=== PATIENT | female | born 1945 | race Caucasian/White ===

== ENCOUNTER 2018-08-03 04:00 | Observation (INO) | payer MEDICARE ==
[~2018-08-03] VITALS: Ht 160 cm; Wt 80.8 kg
[2018-08-03] MEDS ORDERED: NITROGLYCERIN SUBLINGUAL 0.4 MG BOTTLE OF 25. SL PRN ×2 (04:15→05:15)
[2018-08-03] MEDS ORDERED: dilTIAZem VIAL 125 MG in IV DEXTROSE 5% 100 ML IV STA (04:20)
--- NOTE | 2018-08-03 04:35 | PHYS DOC ---
Adult General Chief Complaint Chief Complaint cp HPI HPI 72 years old female presented to the emergency department with chest pain described as a pressure chest she stated that she woke up from sleep when to the kitchen and found her back she experienced pressure in his chest associated with dizziness and palpitation and shortness of breath no cough no fever no chills no abdominal pain urgency or frequency no hematuria Patient stated that she never experienced this pain before she denies any history of coronary artery disease, diabetes, smoking Review of Systems Review of Systems Constitutional: Denies fever or chills [] Eyes: Denies change in visual acuity, redness, or eye pain [] HENT: Denies nasal congestion or sore throat [] Respiratory: Denies cough or shortness of breath [] Cardiovascular: No additional information not addressed in HPI [] GI: Denies abdominal pain, nausea, vomiting, bloody stools or diarrhea [] : Denies dysuria or hematuria [] Musculoskeletal: Denies back pain or joint pain [] Integument: Denies rash or skin lesions [] Neurologic: Denies headache, focal weakness or sensory changes [] Endocrine: Denies polyuria or polydipsia [] All other systems were reviewed and found to be within normal limits, except as documented in this note. Current Medications Current Medications Current Medications Medications (Trade) Dose Ordered Sig/Troy Start Time Stop Time Status Last Admin Dose Admin Aspirin (Children'S Aspirin) 324 mg 1X ONCE 08/03/18 05:00 08/03/18 05:01 DC 08/03/18 04:42 324 MG Clopidogrel Bisulfate (Plavix) 300 mg 1X ONCE 08/03/18 05:00 08/03/18 05:01 DC 08/03/18 05:15 300 MG Dextrose 0 ml @ As Directed STK-MED ONCE 08/03/18 04:36 08/03/18 04:37 DC Diltiazem HCl (Cardizem Iv Push) 20 mg 1X ONCE 08/03/18 05:00 08/03/18 05:09 DC Diltiazem HCl (Cardizem) 125 mg STK-MED ONCE 08/03/18 04:36 08/03/18 05:09 DC Diltiazem HCl 125 mg/Dextrose 125 ml @ 5 mls/hr CONT PRN 08/03/18 04:45 08/03/18 05:09 DC Metoprolol Succinate (Toprol Xl) 50 mg 1X ONCE 08/03/18 05:30 08/03/18 05:31 08/03/18 05:15 50 MG Nitroglycerin (Nitro-Bid Oint) 1 inch 1X ONCE 08/03/18 05:00 08/03/18 05:09 DC Nitroglycerin (Nitrostat) 0.4 mg PRN Q5MIN PRN 08/03/18 05:15 08/04/18 05:14 Ondansetron HCl (Zofran) 4 mg PRN Q4HRS PRN 08/03/18 05:15 08/04/18 05:14 Sodium Chloride 1,000 ml @ 1,000 mls/hr Q1H 08/03/18 05:00 08/03/18 05:59 08/03/18 04:46 1,000 MLS/HR Allergies Allergies Allergies Coded Allergies Type Severity Reaction Last Updated Verified No Known Drug Allergies 08/03/18 No Physical Exam Physical Exam Constitutional: Well developed, well nourished, no acute distress, non-toxic appearance. [] HENT: Normocephalic, atraumatic, bilateral external ears normal, oropharynx moist, no oral exudates, nose normal. [] Eyes: PERRLA, EOMI, conjunctiva normal, no discharge. [] Neck: Normal range of motion, no tenderness, supple, no stridor. [] Cardiovascular:Heart rate regular rhythm, no murmur [] Lungs & Thorax: Bilateral breath sounds clear to auscultation [] Abdomen: Bowel sounds normal, soft, no tenderness, no masses, no pulsatile masses. [] Skin: Warm, dry, no erythema, no rash. [] Back: No tenderness, no CVA tenderness. [] Extremities: No tenderness, no cyanosis, no clubbing, ROM intact, no edema. [] Neurologic: Alert and oriented X 3, normal motor function, normal sensory function, no focal deficits noted. [] Psychologic: Affect normal, judgement normal, mood normal. [] Current Patient Data Vital Signs Vital Signs Date Time Temp Pulse Resp B/P (MAP) Pulse Ox O2 Delivery O2 Flow Rate FiO2 08/03/18 05:15 76 136/74 08/03/18 04:02 97.7 20 97 Room Air Lab Results Laboratory Tests Test 08/03/18 04:30 White Blood Count 7.2 x10^3/uL (4.0-11.0) Red Blood Count 4.22 x10^6/uL (3.50-5.40) Hemoglobin 12.9 g/dL (12.0-15.5) Hematocrit 38.1 % (36.0-47.0) Mean Corpuscular Volume 90 fL (79-100) Mean Corpuscular Hemoglobin 31 pg (25-35) Mean Corpuscular Hemoglobin Concent 34 g/dL (31-37) Red Cell Distribution Width 13.6 % (11.5-14.5) Platelet Count 338 x10^3/uL (140-400) Neutrophils (%) (Auto) 43 % (31-73) Lymphocytes (%) (Auto) 42 % (24-48) Monocytes (%) (Auto) 11 % (0-9) H Eosinophils (%) (Auto) 3 % (0-3) Basophils (%) (Auto) 1 % (0-3) Neutrophils # (Auto) 3.1 x10^3uL (1.8-7.7) Lymphocytes # (Auto) 3.0 x10^3/uL (1.0-4.8) Monocytes # (Auto) 0.8 x10^3/uL (0.0-1.1) Eosinophils # (Auto) 0.2 x10^3/uL (0.0-0.7) Basophils # (Auto) 0.1 x10^3/uL (0.0-0.2) Sodium Level 141 mmol/L (136-145) Potassium Level 3.6 mmol/L (3.5-5.1) Chloride Level 104 mmol/L (98-107) Carbon Dioxide Level 23 mmol/L (21-32) Anion Gap 14 (6-14) Blood Urea Nitrogen 23 mg/dL (7-20) H Creatinine 0.9 mg/dL (0.6-1.0) Estimated GFR (Cockcroft-Gault) 61.5 BUN/Creatinine Ratio 26 (6-20) H Glucose Level 117 mg/dL (70-99) H Calcium Level 8.6 mg/dL (8.5-10.1) Total Bilirubin 0.5 mg/dL (0.2-1.0) Aspartate Amino Transferase (AST) 27 U/L (15-37) Alanine Aminotransferase (ALT) 28 U/L (14-59) Alkaline Phosphatase 99 U/L (46-116) Creatine Kinase 238 U/L (26-192) H Creatine Kinase MB (Mass) 3.2 ng/mL (0.0-3.6) Creatine Kinase MB Relative Index 1.3 % (0-4) Troponin I Quantitative < 0.017 ng/mL (0-0.055) Total Protein 6.8 g/dL (6.4-8.2) Albumin 3.6 g/dL (3.4-5.0) Albumin/Globulin Ratio 1.1 (1.0-1.7) EKG EKG Rapid atrial fibrillation[] Radiology/Procedures Radiology/Procedures [] Course & Med Decision Making Course & Med Decision Making Pertinent Labs and Imaging studies reviewed. (See chart for details) [] Final Impression Final Impression After receiving IV fluids patient converted to sinus rhythm and emergency department, chest pain resolved Problems: (1) Rapid atrial fibrillation Dragon Disclaimer Dragon Disclaimer This electronic medical record was generated, in whole or in part, using a voice recognition dictation system. LARA JOHNSTON MD Aug 03, 2018 04:35
[2018-08-03] MEDS ORDERED: IV DEXTROSE 5% 0 ML IV ONE (04:36)
--- NOTE | 2018-08-03 04:43 | EKG ---
[address] [address] Test Date: 2018-08-03 Test Time: 04:07:26 Pat Name: NGUYEN GILMAN Department: Room: Gender: F Poultry Farmer: : 1945 Requested By: LARA JOHNSTON Order Number: [id number] Reading MD: Gerard Ruelas Measurements Intervals [place] Rate: 148 P: RI: QRS: -8 QRSD: 80 T: 47 QT: 280 QTc: 444 Interpretive Statements ATRIAL FIBRILLATION WITH RVR LEFTWARD AXIS Electronically Signed On 08-13-2018 9:24:05 [employer] SUPERVISOR by Gerard Ruelas
[2018-08-03] MEDS ORDERED: dilTIAZem VIAL 125 MG in IV DEXTROSE 5% 100 ML IV PRN (04:45)
[2018-08-03 04:49] LABS: BASO # 0.1 x10^3/uL (0.0-0.2); BASO % 1 % (0-3); EOS # 0.2 x10^3/uL (0.0-0.7); EOS % 3 % (0-3); HEMATOCRIT 38.1 % (36.0-47.0); HEMOGLOBIN 12.9 g/dL (12.0-15.5); LYMPH % 42 % (24-48); MEAN CORPUSCULAR HEMOGLOBIN 31 pg (25-35); MEAN CORPUSCULAR HGB CONC 34 g/dL (31-37); MEAN CORPUSCULAR VOLUME 90 fL (79-100); MONO # 0.8 x10^3/uL (0.0-1.1); MONO % 11 % (0-9); NEUT # 3.1 x10^3uL (1.8-7.7); NEUT % 43 % (31-73); PLATELET COUNT 338 x10^3/uL (140-400); RED BLOOD COUNT 4.22 x10^6/uL (3.50-5.40); RED CELL DISTRIBUTION WIDTH 13.6 % (11.5-14.5); WHITE BLOOD COUNT 7.2 x10^3/uL (4.0-11.0)
[2018-08-03] MEDS ORDERED: ASPIRIN 81 MG TAB.CHEW PO ONE (05:00)
[2018-08-03] MEDS ORDERED: CLOPIDOGREL BISULFATE 75 MG TABLET PO ONE (05:00)
[2018-08-03] MEDS ORDERED: NITROGLYCERIN OINT 1 GM PACKET. TP ONE (05:00)
[2018-08-03] MEDS ORDERED: dilTIAZem HCL 30 MG TABLET PO ONE (05:00)
[2018-08-03] MEDS ORDERED: dilTIAZem 25 MG/5 ML VIAL IVP ONE (05:00)
[2018-08-03] MEDS ORDERED: IV NORMAL SALINE 1,000ML 1,000 ML IV SCH (05:00)
[2018-08-03 05:14] LABS: ALBUMIN 3.6 g/dL (3.4-5.0); ALBUMIN/GLOBULIN RATIO 1.1 (1.0-1.7); CALCIUM 8.6 mg/dL (8.5-10.1); CREATININE 0.9 mg/dL (0.6-1.0); GFR 61.5; POTASSIUM 3.6 mmol/L (3.5-5.1); TOTAL BILIRUBIN 0.5 mg/dL (0.2-1.0); TOTAL PROTEIN 6.8 g/dL (6.4-8.2)
[2018-08-03] MEDS ORDERED: ONDANSETRON PF 4 MG/2 ML VIAL. IV PRN (05:15)
[2018-08-03] MEDS ORDERED: METOPROLOL SUCC 24HR ER 25 MG TAB.ER.24H. PO ONE (05:30)
[2018-08-03 06:37] VITALS: BP 145/78
[2018-08-03] MEDS ORDERED: LOSA25TA PO (08:27)
[2018-08-03] MEDS ORDERED: ASPI-630 PO (08:27)
[2018-08-03] MEDS ORDERED: VIT1TABL34 PO (08:27)
[2018-08-03] MEDS ORDERED: EVOL140S SQ (08:27)
[2018-08-03] MEDS ORDERED: OMEP20CA9 PO (08:28)
[2018-08-03] MEDS ORDERED: FISH12002 PO (08:28)
[2018-08-03] MEDS ORDERED: IBUP400T18 PO (08:28)
[2018-08-03 11:04] VITALS: BP 134/71
--- NOTE | 2018-08-03 12:16 | PDOC2 ---
CONSULT Date of Admission DATE: 08/03/18 TIME: 12:15 Reason for Consult: atrial fibrillation Referring Physician: Dr. Iraheta Chief Complaint Chest pain Source: Chart review, Patient History of Present Illness 72-year-old female, resident of [facility] was visiting family here in [place] [address], apparently presented to ED with retrosternal chest pressure that woke her up from sleep associated with palpitations, mild shortness of breath and diaphoresis. She denied any similar history in the past. She also denied any orthopnea/PND or syncope. She was found to be in atrial fibrillation with rapid ventricular response and admitted for further management. She converted to sinus rhythm overnight and presently feels significantly better. Past Medical History Hyperlipidemia Hypertension Gastroesophageal reflux disease Social History Patient admitted to social intake of alcohol but denied any smoking or drug abuse Current Medications Current Medications Diltiazem HCl (Cardizem Iv Push) 20 mg 1X ONCE IVP ; Start 08/03/18 at 05:00; Stop 08/03/18 at 05:09; Status DC Aspirin (Children'S Aspirin) 324 mg 1X ONCE PO Last administered on 08/03/18at 04:42; Start 08/03/18 at 05:00; Stop 08/03/18 at 05:01; Status DC Nitroglycerin (Nitrostat) 0.4 mg PRN Q5MIN PRN SL CP RATING > 1/10 Last administered on 08/03/18at 04:44; Start 08/03/18 at 04:15; Stop 08/03/18 at 05:12 ; Status DC Sodium Chloride 1,000 ml @ 1,000 mls/hr Q1H IV Last administered on 08/03/18at 04:46; Start 08/03/18 at 05:00; Stop 08/03/18 at 05:59; Status DC Nitroglycerin (Nitro-Bid Oint) 1 inch 1X ONCE TP ; Start 08/03/18 at 05:00; Stop 08/03/18 at 05:09; Status DC Diltiazem HCl 125 mg/Dextrose 125 ml @ 0 mls/hr CONT STAT IV ; Start 08/03/18 at 04:20; Stop 08/03/18 at 04:21; Status UNV Diltiazem HCl (Cardizem) 60 mg 1X ONCE PO ; Start 08/03/18 at 05:00; Stop 08/03 at 05:09; Status DC Diltiazem HCl 125 mg/Dextrose 125 ml @ 5 mls/hr CONT PRN IV SEE I/O RECORD; Start 08/03/18 at 04:45; Stop 08/03/18 at 05:09; Status DC Dextrose 0 ml @ As Directed STK-MED ONCE IV ; Start 08/03/18 at 04:36; Stop 08/03/18 at 04:37; Status DC Diltiazem HCl (Cardizem) 125 mg STK-MED ONCE IV ; Start 08/03/18 at 04:36; Stop 08/03/18 at 05:09; Status DC Clopidogrel Bisulfate (Plavix) 300 mg 1X ONCE PO Last administered on at 05:15; Start 08/03/18 at 05:00; Stop 08/03/18 at 05:01; Status DC Ondansetron HCl (Zofran) 4 mg PRN Q4HRS PRN IV NAUSEA/VOMITING; Start 08/03/18 at 05:15; Stop 08/04/18 at 05:14 Nitroglycerin (Nitrostat) 0.4 mg PRN Q5MIN PRN SL CHEST PAIN; Start 08/03/18 at 05:15; Stop 08/04/18 at 05:14 Metoprolol Succinate (Toprol Xl) 50 mg 1X ONCE PO Last administered on at 05:15; Start 08/03/18 at 05:30; Stop 08/03/18 at 05:31; Status DC Active Scripts Active Reported Ibuprofen 400 Mg Tablet 500 Mg PO BID [place] 3-6-9 1,200 mg Softgel (Fish Oil/Borage/Flax/Om3,6,9#1) 1,200 Mg Capsule 1 ,200 Mg PO DAILY Omeprazole 20 Mg Capsule.dr 1 Cap PO DAILY Preservision Areds Tablet (Vit A/Vit C/Vit E/Zinc/Copper) 1 Each Tablet 1 Each PO DAILY Aspirin 81 Mg Tab.chew 81 Mg PO DAILY Cozaar (Losartan Potassium) 25 Mg Tablet 10 Mg PO DAILY Repatha Syringe (Evolocumab) 140 Mg/1 Ml Syringe 140 Mg SQ Q2WKS Allergies: Coded Allergies: No Known Drug Allergies (Unverified , 08/03/18) PSYCHOLOGICAL ROS: No: Hallucinations Eyes: No: Loss of vision HEENT: No: Epistaxis ENDOCRINE: YES: Palpitations Respiratory: No: Shortness of breath Cardiovascular: yes: Chest Pain Gastrointestinal: No: Vomiting, Diarrhea Genitourinary: No: [place] Neurological: No: Seizures Skin: No: Rash General: Alert, Oriented X3 HEENT: Atraumatic, PERRLA Lungs: Clear to auscultation Heart: Regular rate Abdomen: Soft, No tenderness Extremities: No edema Psych/Mental Status: Mood NL VITALS Vital Signs Date Time Temp Pulse Resp B/P (MAP) Pulse Ox O2 Delivery O2 Flow Rate FiO2 08/03/18 11:04 98.4 59 20 134/71 (92) 98 Room Air Labs Laboratory Tests Test 08/03/18 04:30 08/03/18 08:35 08/03/18 11:12 White Blood Count 7.2 x10^3/uL (4.0-11.0) Red Blood Count 4.22 x10^6/uL (3.50-5.40) Hemoglobin 12.9 g/dL (12.0-15.5) Hematocrit 38.1 % (36.0-47.0) Mean Corpuscular Volume 90 fL (79-100) Mean Corpuscular Hemoglobin 31 pg (25-35) Mean Corpuscular Hemoglobin Concent 34 g/dL (31-37) Red Cell Distribution Width 13.6 % (11.5-14.5) Platelet Count 338 x10^3/uL (140-400) Neutrophils (%) (Auto) 43 % (31-73) Lymphocytes (%) (Auto) 42 % (24-48) Monocytes (%) (Auto) 11 % (0-9) Eosinophils (%) (Auto) 3 % (0-3) Basophils (%) (Auto) 1 % (0-3) Neutrophils # (Auto) 3.1 x10^3uL (1.8-7.7) Lymphocytes # (Auto) 3.0 x10^3/uL (1.0-4.8) Monocytes # (Auto) 0.8 x10^3/uL (0.0-1.1) Eosinophils # (Auto) 0.2 x10^3/uL (0.0-0.7) Basophils # (Auto) 0.1 x10^3/uL (0.0-0.2) Sodium Level 141 mmol/L (136-145) Potassium Level 3.6 mmol/L (3.5-5.1) Chloride Level 104 mmol/L (98-107) Carbon Dioxide Level 23 mmol/L (21-32) Anion Gap 14 (6-14) Blood Urea Nitrogen 23 mg/dL (7-20) Creatinine 0.9 mg/dL (0.6-1.0) Estimated GFR (Cockcroft-Gault) 61.5 BUN/Creatinine Ratio 26 (6-20) Glucose Level 117 mg/dL (70-99) Calcium Level 8.6 mg/dL (8.5-10.1) Total Bilirubin 0.5 mg/dL (0.2-1.0) Aspartate Amino Transf (AST/SGOT) 27 U/L (15-37) Alanine Aminotransferase (ALT/SGPT) 28 U/L (14-59) Alkaline Phosphatase 99 U/L (46-116) Creatine Kinase 238 U/L (26-192) Creatine Kinase MB (Mass) 3.2 ng/mL (0.0-3.6) Creatine Kinase MB Relative Index 1.3 % (0-4) Troponin I Quantitative < 0.017 ng/mL (0-0.055) < 0.017 ng/mL (0-0.055) < 0.017 ng/mL (0-0.055) Total Protein 6.8 g/dL (6.4-8.2) Albumin 3.6 g/dL (3.4-5.0) Albumin/Globulin Ratio 1.1 (1.0-1.7) Assessment/Plan 1. Atrial fibrillation, new onset converted to sinus rhythm overnight spontaneously. Patient denied any previous history of arrhythmias. Plan for 2-D echo to assess LV systolic function, Lexiscan nuclear stress test to rule out ischemia and event monitor to assess arrhythmia burden. Patient would like to get these tests done as an outpatient in [facility] where she is from. She 'll advised to take baby aspirin the interim for stroke prophylaxis. 2. Hyperlipidemia: Currently being treated with repatha 3. Hypertension: Controlled Thank you for your consultation JB MONTEIRO MD Aug 03, 2018 12:16
--- NOTE | 2018-08-03 14:19 | RAD ---
AP chest x-ray HISTORY: Chest pain. FINDINGS: Heart size normal. Aortic arch calcified plaque. Mild prominent epicardial fat pads. No pneumothorax, pulmonary opacities or pleural effusions. Bones are unremarkable. IMPRESSION: No acute process. Electronically signed by: Steven Lott MD (08/03/2018 2:15 PM) [facility]
--- NOTE | 2018-08-03 16:14 | SSS ---
ADMIT DATE: 08/03/2018 HISTORY OF PRESENT ILLNESS: The patient is a 72-year-old female patient who came to the Emergency Room with a complaint of retrosternal chest pain that woke her up from sleep with associated palpitation and mild shortness of breath. She denied any similar history in the past. She denied any orthopnea or paroxysmal nocturnal dyspnea or syncope. She was found to be in atrial fibrillation with rapid ventricular response and while she is still in the Emergency Room, she converted back to sinus rhythm and felt well thereafter and all her symptoms have disappeared. She was admitted to do 2 more sets of cardiac enzyme, check her fasting lipid profile and consult the cold patcher. PAST MEDICAL HISTORY: Significant for hypertension and hyperlipidemia. PAST SURGICAL HISTORY: Unremarkable. ALLERGIES: She has no known drug allergies. MEDICATIONS: She is currently on following medications: She is on Repatha 140 mg subcutaneously every 2 weeks, losartan potassium 25 mg once a day, aspirin 81 mg once a day, ibuprofen 400 mg twice a day, omeprazole 20 mg once a day, fish oil for omega-3 fatty acids 1 capsule once a day, PreserVision AREDS tablet 1 tablet once a day. FAMILY HISTORY: She has 5 brothers, 4 older and 1 younger. His older brother at the age of 88 of myocardial infarction. Another brother is alive at the age of 88 and has myocardial infarction. His youngest brother weighs 400 pounds and he is alive at the age of 66. Her father at the age of 61 because of myocardial infarction. Mother at the age of 76, but the cause of is not known to her. SOCIAL HISTORY: She is , has 1 son and 1 daughter. She does not smoke, but drinks alcohol daily. She drinks a glass of wine or 2 gins every night. Does not use any illicit drugs. REVIEW OF SYSTEMS: The patient denied any blurring of vision, cataract, glaucoma, or macular degeneration. Denied any earache, tinnitus, or sensorineural deafness. Denied any nosebleeds, stuffy nose, or postnasal drip. Denied any sore throat, sore tongue, toothache, hoarseness of voice, or difficulty swallowing. Denied any nausea, vomiting, diarrhea, or constipation. Denied any hematemesis, melena, or hematochezia. Denied any dysuria, frequency, or hematuria. Did complain of chest pain, palpitation, but denied any orthopnea or paroxysmal nocturnal dyspnea. Denied any cough, phlegm, or hemoptysis. Denied any chills, rigors, or fever. Denied any dizziness, lightheadedness, or vertigo. PHYSICAL EXAMINATION: VITAL SIGNS: On arrival to the Emergency Room. her heart rate was 126, blood pressure was 160/83, temperature was 97.7, respiratory rate was 20, and oxygen saturation was 97%. HEAD, EYES, EARS, NOSE, AND THROAT: Showed normocephalic, atraumatic. NECK: Supple. HEART: Showed normal first and second heart sounds with no gallop, rub, or murmur. CHEST: Clear to auscultation. No crepitation or rhonchi. ABDOMEN: Slightly distended, soft, nontender. No guarding or rigidity. No organomegaly. All hernial orifices intact. Bowel sounds normal. NEUROLOGIC: She was awake, alert, responding appropriately. All cranial nerves intact. She moves extremities without difficulty. She ambulates without assistance or assistive devices. LABORATORY DATA: Her lab work showed a white cell count of 7200, hemoglobin 12.9, hematocrit 38, MCV 90, and platelet count of 338,000. She has 3 sets of cardiac enzyme, all of them were less than 0.017. Her serum sodium was 141, potassium 3.6, chloride 104, bicarbonate 23, anion gap of 14, BUN 23, creatinine 0.9, estimated GFR was 61 mL per minute. Her glucose was 117, calcium was 8.6. Total bilirubin, AST, ALT, alkaline phosphatase were normal. Her total protein was 6.8, albumin 3.6. She has her own cold patcher in [place], [place]. She will get the stress test as an outpatient in [place], [place] where she sees her primary cold patcher. She was advised to be on a baby aspirin in the interim for stroke prevention. FINAL DISCHARGE DIAGNOSES: 1. Paroxysmal atrial fibrillation, now converted to sinus rhythm spontaneously. 2. Hypertension. 3. Hyperlipidemia. The patient will be following with her primary cold patcher at [place], [place]. ZULAY GUERRERO MD DR: MARICRUZ/stacy JOB#: [id number] / [id number]
[2018-08-03] MEDS ORDERED: IBUPROFEN 400 MG TABLET. PO SCH (21:00)
[2018-08-04] MEDS ORDERED: FISH OIL PO SCH (09:00)
[2018-08-04] MEDS ORDERED: FLAX PO SCH (09:00)
[2018-08-04] MEDS ORDERED: LOSARTAN 25 MG TABLET. PO SCH (09:00)
[2018-08-04] MEDS ORDERED: NON FORMULARY ITEM (Omeprazole 1 CAP) PO SCH (09:00)
[2018-08-04] MEDS ORDERED: NON FORMULARY ITEM (Aspirin 81 MG) PO SCH (09:00)
[2018-08-04] MEDS ORDERED: ZINC PO SCH (09:00)
[2018-08-04] MEDS ORDERED: COPPER PO SCH (09:00)
[2018-08-04] MEDS ORDERED: VIT E PO SCH (09:00)
[2018-08-04] MEDS ORDERED: [UNRECOGNIZED DRUG - OTHER] PO SCH (09:00)
[2018-08-04] MEDS ORDERED: VIT C PO SCH (09:00)
[2018-08-04] MEDS ORDERED: VIT A PO SCH (09:00)
[2018-08-04] MEDS ORDERED: BORAGE PO SCH (09:00)
--- NOTE | 2018-08-06 11:21 | EKG ---
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
[2018-08-17] MEDS ORDERED: NON FORMULARY ITEM (Evolocumab (Repatha Syringe) 140 MG) SQ SCH ×4 (09:00)
== END 2018-08-03 14:40 | disposition home or self-care (01) ==
LOC: ER 04:00 → UNDOADMIN 05:03 → 1 SOUTH 05:03 → UNDODISIN 14:40
PROVIDERS: ADMIT Internal Medicine; ATTEND Internal Medicine
DX: I48.0 Paroxysmal atrial fibrillation (principal); E78.5 Hyperlipidemia, unspecified; R42 Dizziness and giddiness; I10 Essential (primary) hypertension; Z79.899 Other long term (current) drug therapy; Z82.49 Family history of ischemic heart disease and other diseases of the circulatory system
CPT/HCPCS: 36415; 71045; 80053; 82553; 84484; 85025; 93005; 96360; 99284; G0378; G0379; 99285-25; J7030